=== PATIENT | male | born 1970 | race Native Hawaiian/Other Pacific Islander ===

== ENCOUNTER 2018-01-02 19:37 | Emergency (ER) | payer MEDICAID, OTHER ==
[2018-01-02 19:49] VITALS: BMI 23.0
[2018-01-02 19:50] VITALS: TEMP 99.3
--- NOTE | 2018-01-02 20:02 | ED PDOC ---
Arrival/HPI - General Chief Complaint: Lower Extremity Problem/Injury Time Seen by Provider: 01/02/18 19:58 Historian: Patient - History of Present Illness Narrative History of Present Illness (Text): 01/02/18 19:58 47yo male with no PMhx who present with complaint of left foot laceration. the daughter by the bedside states patient was accidentally cut by a glass at 1100AM. States patient didn't want to come, but then changed his mind. He is up to date with his TD vaccination. Denies any other complaint. Past Medical History - Provider Review Nursing Documentation Reviewed: Yes - Past History Past History: Non-Contributing - Infectious Disease Hx of Infectious Diseases: None - Tetanus Immunization Tetanus Immunization: Unknown - Past Medical History Past Medical History: No Previous - Cardiac Hx Cardiac Disorders: No - Pulmonary Hx Respiratory Disorders: No - Neurological Hx Neurological Disorder: No - HEENT Hx HEENT Disorder: No - Renal Hx Renal Disorder: No - Endocrine/Metabolic Hx Endocrine Disorders: No - Hematological/Oncological Hx Blood Disorders: No - Integumentary Hx Dermatological Disorder: No - Musculoskeletal/Rheumatological Hx Musculoskeletal Disorders: No - Gastrointestinal Hx Gastrointestinal Disorders: No - Genitourinary/Gynecological Hx Genitourinary Disorders: No - Psychiatric Hx Psychophysiologic Disorder: No Hx Substance Use: No - Anesthesia Hx Anesthesia: No Hx Anesthesia Reactions: No Hx Malignant Hyperthermia: No Family/Social History - Physician Review Nursing Documentation Reviewed: Yes Family/Social History: Unknown Family HX Smoking Status: Heavy Smoker > 10 Cigarettes Daily Hx Alcohol Use: No Hx Substance Use: No Allergies/Home Meds Allergies/Adverse Reactions: Allergies No Known Allergies Allergy (Verified 01/02/18 19:49) Review of Systems - Physician Review All systems were reviewed & negative as marked: Yes - Review of Systems Constitutional: Normal Eyes: Normal ENT: Normal Respiratory: Normal Cardiovascular: Normal Gastrointestinal: Normal Genitourinary Male: Normal Musculoskeletal: Normal Skin: Laceration (Left foot) Neurological: Normal Endocrine: Normal Hemo/Lymphatic: Normal Psychiatric: Normal Physical Exam Vital Signs Reviewed: Yes Vital Signs Temp Pulse Resp BP Pulse Ox 01/02/18 21:56 77 19 121/67 100 01/02/18 19:50 99.3 F 77 18 113/64 97 Temperature: Afebrile Blood Pressure: Normal Pulse: Regular Respiratory Rate: Normal Appearance: Positive for: Well-Appearing, Non-Toxic, Comfortable Pain Distress: None Mental Status: Positive for: Alert and Oriented X 3 - Systems Exam Head: Present: Atraumatic, Normocephalic Pupils: Present: PERRL Extroacular Muscles: Present: EOMI Conjunctiva: Present: Normal Mouth: Present: Moist Mucous Membranes Neck: Present: Normal Range of Motion Respiratory/Chest: Present: Clear to Auscultation, Good Air Exchange. No: Respiratory Distress, Accessory Muscle Use Cardiovascular: Present: Regular Rate and Rhythm, Normal S1, S2. No: Murmurs Abdomen: Present: Normal Bowel Sounds. No: Tenderness, Distention, Peritoneal Signs Back: Present: Normal Inspection Upper Extremity: Present: Normal Inspection. No: Cyanosis, Edema Lower Extremity: Present: Normal Inspection. No: Edema Neurological: Present: GCS=15, CN II-XII Intact, Speech Normal Skin: Present: Warm, Dry, Normal Color, Laceration (3.0cm linear laceration on dorsal aspect of left foot). No: Rashes Psychiatric: Present: Alert, Oriented x 3, Normal Insight, Normal Concentration Medical Decision Making - Medication Orders Current Medication Orders: Discontinued Medications Acetaminophen (Tylenol 325mg Tab) 650 mg PO STAT STA Stop: 01/02/18 20:05 Last Admin: 01/02/18 20:38 Dose: 650 mg MAR Pain/Vitals Document 01/02/18 20:38 RD (Rec: 01/02/18 20:38 RD [id number]) Pain Reassessment Is This A Pain ReAssessment? No Sleep Is patient sleeping during reassessment? No Presence of Pain Presence of Pain Yes Cephalexin Monohydrate (Keflex) 500 mg PO STAT STA PRN Reason: Protocol Stop: 01/02/18 20:04 Last Admin: 01/02/18 20:38 Dose: 500 mg Lidocaine/Epinephrine (Xylocaine 1% W Epi 1:100,000 Inj) 5 ml IJ STAT STA Stop: 01/02/18 20:04 Last Admin: 01/02/18 20:24 Dose: Procedure: Wound Repair - Consent Obtained Consent obtained: Verbal - Performed by Performed by: Mid-level Provider - Indications Indication(s):: Laceration - Location Location:: Left, Foot Shape:: Linear Dimensions Length cm: 3.0 - Anesthetic Technique Anesthetic Technique: Local Local/Regional Anesthetic:: Lidocaine 1% w/epi (5) - Debris Debris:: None - Irrigated Irrigated with ml of normal saline: 50 - Complexity Complexity:: Intermediate (2 layer) - Muscle repiar layer closed with Muscle repair layer closed with:: # (8), Size (5), Type (nylon), Technique ( interrupted), Wound well approximated, Abx ointment applied, Dressing applied, Tetanus up to date - Patient tolerated procedure Patient Tolerated Procedure:: Well Disposition/Present on Arrival - Present on Arrival Any Indicators Present on Arrival: No History of DVT/PE: No History of Uncontrolled Diabetes: No Urinary Catheter: No History of Decub. Ulcer: No History Surgical Site Infection Following: None - Disposition Have Diagnosis and Disposition been Completed?: Yes Diagnosis: Foot laceration Disposition: HOME/ ROUTINE Disposition Time: 20:10 Patient Plan: Discharge Condition: STABLE Discharge Instructions (ExitCare): Laceration Repair Additional Instructions: Keep wound clean and dry Follow up with your doctor in 10days for suture removal Return to ED for any redness, purulent discharge, fever Prescriptions: Cephalexin [cephalexin] 500 mg PO TID #21 cap Referrals: [facility] [Outside] - Follow up with primary Forms: [employer] (Telugu)
[2018-01-02] MEDS ORDERED: Lidocaine 1% w Epi 1:100,000 Inj IJ STA (20:03)
[2018-01-02 20:06] VITALS: PULSE 77
[2018-01-03 00:24] VITALS: BP 121/67; RESP 19; O2SAT 100
== END 2018-01-02 21:56 | disposition home or self-care (01) ==
LOC: ED 19:37
DX: S91.312A Laceration without foreign body, left foot, initial encounter (principal); W25.XXXA Contact with sharp glass, initial encounter; Y92.89 Other specified places as the place of occurrence of the external cause